=== PATIENT | male | born 1955 | race Caucasian/White ===

== ENCOUNTER → 2016-06-12 | Outpatient (CLI) | payer MEDICAID ==
[~2016-06-12] MED LIST: ASPIRIN 325MG325 MG PO; IBUPROFEN800 MG PO
--- NOTE | 2016-06-12 10:12 | RADIOLOGY REPORT PS360 ---
HAND-RT 3 VIEWS HISTORY: Posttraumatic pain RT HAND PAIN ORDERING PHYSICIAN: Juan Pablo Manzo MD PATIENT AGE: 61 years COMPARISON: 05/30/2016 FINDINGS: There is a transverse fracture through the proximal aspect of the proximal phalanx of the fifth digit as previously described which is not significantly changed. No callus formation evident. There may be articular surface involvement of the proximal phalanx fracture.. Bone plate over the distal radius. IMPRESSION: No change proximal phalanx fracture fifth digit
== END ==
LOC: RAD 09:07
DX: M79.641 Pain in right hand (principal)